=== PATIENT | female | born 1950 | race Two or more races ===

== ENCOUNTER 2025-05-27 10:47 | Emergency (ER) | payer OTHER ==
[~2025-05-27] VITALS: Ht 157.5 cm; Wt 69.9 kg
[2025-05-27 16:23] LABS: BASO % 0.6 % (0.1-1.2); EOS # 0.03 (0.04-0.54); EOS % 0.5 % (0.7-7.0); LYMPH # 2.47 (1.18-3.74); LYMPH % 38.7 % (19.3-53.1); MEAN PLATELET VOLUME 9.40 fl (9.4-12.4); MONO # 0.47 (0.24-0.82); MONO % 7.4 % (4.7-12.5); NEUT # 3.37 (1.56-6.13); NEUT % 52.6 % (34.0-71.1); RED CELL DISTRIBUTION WIDTH 11.8 % (11.6-14.4)
[2025-05-27 17:07] LABS: INR 0.95
[2025-05-27 17:09] LABS: ALT/SGPT 36.0 U/L (12-78); AST/SGOT 22.0 U/L (15-37); BILIRUBIN TOTAL 0.75 mg/dL (0.3-1.2); BUN CREA RATIO 23.0 (7.0-25.0); CREATININE SERUM 0.62 mg/dL (0.55-1.02); GFR 93.84; GLOBULINA 3.8 G/DL (2.4-3.5); GLUCOSE FASTING 156.0 mg/dL (65-100); OSMOLALITY SERUM 277.0 MOSM/KG (275-295)
[2025-05-27 17:30] LABS: URINE APPEARANCE Clear; URINE BILIRRUBIN Negative (NEGATIVE); URINE BLOOD Negative; URINE COLOR Yellow; URINE GLUCOSE Negative (NEGATIVE); URINE KETONE Trace (NEGATIVE); URINE LEUKOCYTE Negative; URINE NITRATE Negative; URINE PROTEIN Negative (NEGATIVE); URINE UROBILINOGEN 0.2 E.U./dl
[2025-05-27 17:36] LABS: URINE BACTERIA 20.3 uL (0.0-1933); URINE EPITHELIAL CELLS 2.2 uL (0.0-38.8); URINE WBC 2.5 uL (0.0-23.2)
[2025-05-27 17:43] LABS: URINE CAST 0.00 uL (0.0-1.40); URINE RBC 1.6 uL (0.0-20.8)
== END 2025-05-27 19:24 ==
LOC: ER 10:48
PROVIDERS: General Practice
DX: N83.209 Unspecified ovarian cyst, unspecified side (principal); N39.0 Urinary tract infection, site not specified; R10.20 Pelvic and perineal pain unspecified side; M54.50 Low back pain, unspecified; I10 Essential (primary) hypertension; E11.9 Type 2 diabetes mellitus without complications